=== PATIENT | female | born 1965 ===

== ENCOUNTER → 2018-03-16 12:07 | Outpatient (REF) | payer BC, OTHER, SELFPAY ==
[2018-03-16 12:23] LABS: Add Manual Diff / Slide Review NO; Basophils Percent Auto 0.7 % (0-2); Eosinophils Percent Auto 3.9 % (2-4); Hemoglobin 12.9 g/dL (12.0-16.0); Lymphocytes Percent Auto 28.2 % (25-40); Mean Corpuscular Hemoglobin 28.4 PG (26-34); Mean Corpuscular Volume 85.9 fL (80-100); Monocytes Percent Auto 5.3 % (3-14); Neutrophils Absolute Auto 3800 /uL (3000-5900); Neutrophils Percent Auto 61.9 % (50-75); Platelet Count 285 X10^3/uL (150-400); Red Blood Cell Count 4.54 X10^6/uL (4.0-5.2); Red Cell Distribution Width 14.3 % (11.6-14.8); White Blood Cell Count 6.1 X10^3/uL (4.5-11.0)
[2018-03-16 12:29] LABS: Alanine Aminotransferase 43 IU/L (9-52); Albumin 4.7 g/dL (3.5-5.0); Albumin Globulin Ratio 1.6 (1.0-2.8); Alkaline Phosphatase 65 U/L (38-126); Aspartate Aminotransferase 31 IU/L (14-36); BUN Creatinine Ratio 23.3 (6-22); Bilirubin Total 0.6 mg/dL (0.2-1.3); Blood Urea Nitrogen 14 mg/dL (7-17); Calcium 9.8 mg/dL (8.4-10.2); Carbon Dioxide 24 mmol/L (22-32); Chloride 104 mmol/L (98-107); Estimated Glomerular Filt Rate > 60.0 mL/min (>60); Globulin 2.9 g/dL (1.7-4.1); Glucose 115 mg/dL (70-100); HEMOLYSIS 18 (0-50); Potassium 4.2 mmol/L (3.4-5.1); Sodium 143 mmol/L (137-145); Total Protein 7.6 g/dL (6.3-8.2)
[2018-03-16 12:42] LABS: Hemoglobin A1C% w Est Avg Glu 5.9 % (4.0-6.0)
[2018-03-16 12:47] LABS: Free T3, Triiodothyronine Free 3.48 pg/mL (2.77-5.27); Free T4, Direct Thyroxine 0.96 ng/dL (0.78-2.19)
[2018-03-16 13:00] LABS: Thyroid Stimulating Hormone 3.59 uIU/mL (0.47-4.68)
[2018-03-16 13:04] LABS: Ferritin 59.4 ng/mL (11.1-264); Testosterone 25.8 ng/dL (5.71-77.0)
[2018-03-16 21:23] LABS: Iron 91 ug/dL (37-170)
[2018-03-17 15:35] LABS: Progesterone < 0.5 ng/mL
[2018-03-18 15:38] LABS: Estradiol 84 pg/mL
[2018-03-18 17:13] LABS: Dehydroepiandrosterone Sulfate 131 mcg/dL (19-231)
== END ==
LOC: LAB 12:07
PROVIDERS: Visit Provider Naturopath
DX: N95.1 Menopausal and female climacteric states (principal)
CPT/HCPCS: 36415; 80053; 82627; 82670; 82728; 83036; 83540; 84144; 84403; 84439; 84443; 84481; 85025